=== PATIENT | male | born 1935 | race Caucasian/White ===

== ENCOUNTER 2019-10-28 10:30 | Outpatient (RCR) | payer OTHER, SELFPAY ==
--- NOTE | 2019-10-28 12:39 | PT.OIE ---
Current Diagnoses Unspecified urinary incontinence (10/28/19) Visit Care Team Role Provider Type Merlin Bowles MD Attending Provider Non-Staff Primary Care Provider Referring Provider Specialty: Family Practice Address: [address] [place] [address], [id number] Email: Physical Therapy Initial Evaluation PT-OP-A Visit Information Start: 10/22/19 09:46 Freq: Status: Active Protocol: Document 10/22/19 12:00 [facility] (Rec: 10/22/19 12:24 [facility] [id number]) Out-Patient Physical Therapy Visit Information Visit Information Visit Type Initial Evaluation Visit Start Time 12:00 Visit Stop Time 12:45 Total Visit Minutes 45 Visit Number 1 Evaluation Information Evaluation Date 10/22/19 PT-OP-B Current Condition Start: 10/22/19 09:46 Freq: Status: Active Protocol: Document 10/22/19 12:00 [facility] (Rec: 10/22/19 12:24 [facility] [id number]) Current Condition History of Current Condition Onset Date symptoms have worsened in the past 8 months Current Complaints urinary stress incontinence especially with sit-stand activities History of Current Condition 1997 history of prostatectomy he did have urinary incontinence then and for 20 years. Recently 8 months his symptoms have gotten worse. He started doing kegels again and this has helped. Activities such as sit stand cause leakage. He does have a hernia in the abdominal wall. Still does alot of heavy lifting. Wears a half of a female hygine pad. Has a daily bowel movement. Voids 4 -5 times from 10-2. Wakes up at 6:30. Has 1/4 cup of decaf coffee in the am. Drinks fluid throught the day and starts to slow down liquids as it get closer to night time. Prior Treatments and Tests post void residual has been doen 4 times and has been normal. Treatment Goals Patient/Caregiver Goals Kaushal's goals include eliminating urinary incontinence especially with sit-stand activities PT-OP-J Posture/Palpation/Skin Start: 10/22/19 09:46 Freq: Status: Active Protocol: Document 10/22/19 12:00 [facility] (Rec: 10/23/19 11:03 [facility] [email or web address]) Palpation Assessment Location suprapubic fascia Palpation Location supropubic fascia Palpation Details able to palpate the transverse abdominal musculature and the anterior pelvic floor, pt has difficulty feeling the anterior pelvic floor. Improved facilitation with isometric adductor squeeze and anterior pelvic floor PT-OP-M Strength Start: 10/22/19 09:46 Freq: Status: Active Protocol: Document 10/22/19 12:00 [facility] (Rec: 10/23/19 11:03 [facility] [email or web address]) Trunk Strength Trunk Manual Muscle Testing Testing Position Supine Flexion 3+ Fair+ Core Stabilization Decreased transverse abdominal stabilization, tendency to bulge out the abdominal wall with transitional movements such as sit-stand or rolling in bed. Pt does have a history of both abdominal and inguinal hernia PT-OP-Q Treatments Start: 10/22/19 09:46 Freq: Status: Active Protocol: Document 10/22/19 12:00 [facility] (Rec: 10/23/19 11:03 [facility] [email or web address]) Therapeutic Exercises Supine Exercises 1 Supine Exercise Name neuro re-education of the levator ani with anterior pelvic floor facilitati Side bilateral Reps/Minutes 10 reps hold x 10 seconds and repe Sitting Exercises 1 Sitting Exercise Name sit to stand with pelvic floor activation Reps/Minutes x 10 reps PT-OP-T Assessment and Plan Start: 10/22/19 09:46 Freq: Status: Active Protocol: Document 10/22/19 12:00 [facility] (Rec: 10/28/19 12:20 [facility] [email or web address]) Physical Therapy Assessment Rehab Potential Rehabilitation Potential Excellent Evaluation Complexity Number of Personal Factors/Comorbidities 0 Number of Body Systems Impaired 1-2 Clinical Presentation at Evaluation Stable Impairments Impairments Activity Tolerance,Functional Activities,Strength Goals Three Impairment pt lacks a home exercise program for pelvic floor strengthening Penitentiary Goal (LTG) Kaushal is independent with a home exercise program for pelvic floor stabilization and endurance LTG Duration 8 weeks Two Impairment decreased endurance of the pelvic floor Penitentiary Goal (LTG) Kaushal is able to sustain a pelivc floor contraction and hold x 10 seconds LTG Duration 8 weeks One Impairment urinary leakage worse with sit -stand Short Term Goal (STG) Kaushal is educated on bracing his pelvic floro prior to transfering from sit-stand STG Duration 2 weeks Food Consultant Goal (LTG) Kaushal is able to strengthen his pelvic floor to enable him to transfer from sit-stand without any urinary leakage LTG Duration 8 weeks Assessment Summary Assessment Naresh presents to physical therapy today with signs and symptoms consistent with urinary stress incontinence. He has a history of prostatectomy over 20 years ago. He reports that he had worked on his pelvic floor after his surgery and has done well with little to no leakage until approximately 8 months ago. He notes now he leaks with sit to stand activities. He can walk x 30 minutes on the treadmill and can sleep through the night without leaking. I educated Naresh today on anterior pelvic floor strengthening. He was also taught to brace with is pelivc floor prior to standing . He is able to facilitate his pelvic floor musculature but was not putting emphasis on the anterior pelvic floor. Naresh would benefit from endurance training of the anterior levator ani. He is a good candidate for PT Physical Therapy Plan Frequency and Duration Frequency of Treatment 1x/Week Duration of Treatment 8 weeks Plan of Care Start Date 10/22/19 Plan of Care End Date 12/17/19 Therapeutic Interventions Therapeutic Interventions Home Exercise Program, Neuromuscular Re-education, Patient/Caregiver Education, Self-Care/Home Management, Therapeutic Exercises Modalities Biofeedback
--- NOTE | 2019-10-28 12:39 | PT.OPPOC ---
Physical, Occupational & Speech Therapy At [facility] Current Diagnoses Unspecified urinary incontinence (10/28/19) Visit Care Team Role Provider Type Merlin Bowles MD Attending Provider Non-Staff Primary Care Provider Referring Provider Specialty: Family Practice Address: [address] [place] [address], [id number] Email: Plan Of Care PT-OP-T Assessment and Plan Start: 10/22/19 09:46 Freq: Status: Active Protocol: Document 10/22/19 12:00 [facility] (Rec: 10/28/19 12:20 [facility] [email or web address]) Physical Therapy Assessment Rehab Potential Rehabilitation Potential Excellent Evaluation Complexity Number of Personal Factors/Comorbidities 0 Number of Body Systems Impaired 1-2 Clinical Presentation at Evaluation Stable Impairments Impairments Activity Tolerance,Functional Activities,Strength Goals Three Impairment pt lacks a home exercise program for pelvic floor strengthening Shelter Goal (LTG) Kaushal is independent with a home exercise program for pelvic floor stabilization and endurance LTG Duration 8 weeks Two Impairment decreased endurance of the pelvic floor Shelter Goal (LTG) Kaushal is able to sustain a pelvic floor contraction and hold x 10 seconds LTG Duration 8 weeks One Impairment urinary leakage worse with sit -stand Short Term Goal (STG) Kaushal is educated on bracing his pelvic floor prior to transferring from sit-stand STG Duration 2 weeks Sales Representative [employer] Goal (LTG) Kaushal is able to strengthen his pelvic floor to enable him to transfer from sit-stand without any urinary leakage LTG Duration 8 weeks Assessment Summary Assessment Naresh presents to physical therapy today with signs and symptoms consistent with urinary stress incontinence. He has a history of prostatectomy over 20 years ago. He reports that he had worked on his pelvic floor after his surgery and has done well with little to no leakage until approximately 8 months ago. He notes now he leaks with sit to stand activities. He can walk x 30 minutes on the treadmill and can sleep through the night without leaking. I educated Naresh today on anterior pelvic floor strengthening. He was also taught to brace with is pelvic floor prior to standing . He is able to facilitate his pelvic floor musculature but was not putting emphasis on the anterior pelvic floor. Naresh would benefit from endurance training of the anterior levator ani. He is a good candidate for PT Physical Therapy Plan Frequency and Duration Frequency of Treatment 1x/Week Duration of Treatment 8 weeks Plan of Care Start Date 10/22/19 Plan of Care End Date 12/17/19 Therapeutic Interventions Therapeutic Interventions Home Exercise Program, Neuromuscular Re-education, Patient/Caregiver Education, Self-Care/Home Management, Therapeutic Exercises Modalities Biofeedback Plan of Care Dates Plan of Care Start Date 10/22/19 Plan of Care End Date 12/17/19 Electronically Signed by: Alycia Glez, PT 10/28/19 0077 Please Sign and Return: I have reviewed this Plan of Care and certify that the skilled therapy services above are required to meet the patient?s needs. Physician Signature Date Printed Name and Credentials Clinical Instructor Signature Printed Name and Credentials
--- NOTE | 2019-10-28 17:32 | PT.OTN ---
Current Diagnoses Unspecified urinary incontinence (10/28/19) Physical Therapy Treatment Note PT-OP-A Visit Information Start: 10/22/19 09:46 Freq: Status: Active Protocol: Document 10/28/19 17:14 [facility] (Rec: 10/28/19 17:32 [facility] [id number]) Out-Patient Physical Therapy Visit Information Visit Information Visit Type Treatment Note Visit Start Time 10:33 Visit Stop Time 11:15 Total Visit Minutes 40 Visit Number 2 Evaluation Information Evaluation Date 10/22/19 PT-OP-B Current Condition Start: 10/22/19 09:46 Freq: Status: Active Protocol: Document 10/22/19 12:00 [facility] (Rec: 10/22/19 12:24 [facility] [id number]) Current Condition History of Current Condition Onset Date symptoms have worsened in the past 8 months Current Complaints urinary stress incontinence especially with sit-stand activities History of Current Condition 1998 history of prostatectomy he did have urinary incontinence then and for 20 years. Recently 8 months his symptoms have gotten worse. He started doing kegels again and this has helped. Activities such as sit stand cause leakage. He does have a hernia in the abdominal wall. Still does alot of heavy lifting. Wears a half of a female hygine pad. Has a daily bowel movement. Voids 4 -5 times from 10-2. Wakes up at 6:30. Has 1/4 cup of decaf coffee in the am. Drinks fluid throught the day and starts to slow down liquids as it get closer to night time. Prior Treatments and Tests post void residual has been doen 4 times and has been normal. Treatment Goals Patient/Caregiver Goals Kaushal's goals include eliminating urinary incontinence especially with sit-stand activities PT-OP-C Subjective Start: 10/22/19 09:46 Freq: Status: Active Protocol: Document 10/28/19 17:14 [facility] (Rec: 10/28/19 17:32 [facility] [email or web address]) OP-PT Subjective Patient Comments Patient Comments pt reports he has been trying to work on sit to stand with pelvic floor activation. He reports the leakage occurs within a few steps after sit - stand. It is better though and he can walk for 30 minutes on the treadmill without leaking PT-OP-J Posture/Palpation/Skin Start: 10/22/19 09:46 Freq: Status: Active Protocol: Document 10/22/19 12:00 [facility] (Rec: 10/23/19 11:03 [facility] [email or web address]) Palpation Assessment Location suprapubic fascia Palpation Location supropubic fascia Palpation Details able to palpate the transverse abdominal musculature and the anterior pelvic floor, pt has difficulty feeling the anterior pelvic floor. Improved facilitation with isometric adductor squeeze and anterior pelvic floor PT-OP-M Strength Start: 10/22/19 09:46 Freq: Status: Active Protocol: Document 10/22/19 12:00 [facility] (Rec: 10/23/19 11:03 [facility] [email or web address]) Trunk Strength Trunk Manual Muscle Testing Testing Position Supine Flexion 3+ Fair+ Core Stabilization Decreased transverse abdominal stabilization, tendency to bulge out the abdominal wall with transitional movements such as sit-stand or rolling in bed. Pt does have a history of both abdominal and inguinal hernia PT-OP-Q Treatments Start: 10/22/19 09:46 Freq: Status: Active Protocol: Document 10/28/19 17:14 [facility] (Rec: 10/28/19 17:32 [facility] [email or web address]) Therapeutic Exercises Supine Exercises 2 Supine Exercise Name ball squeeze with pelvic floor contraction Reps/Minutes 2 x 10 reps 1 Supine Exercise Name neuro re-education of the levator ani with anterior pelvic floor facilitati Side bilateral Reps/Minutes 10 reps hold x 10 seconds and repe Sitting Exercises 1 Sitting Exercise Name sit to stand with pelvic floor activation Reps/Minutes x 10 reps Standing Exercises 1 Standing Exercise Name standing squats with pelvic floor activation Reps/Minutes x 10 reps Therapeutic Activity Therapeutic Activity 1 Name functional training with transfers and pelvic floor activation Comments worked on transfering from supine to sidelying and sitting with TA and pelvic floor activation to decrease the pressure both on the abdominal wall and pelvic floor. Self-Care/Home Management Treatment Education Patient Education Home Exercise Program Other Education education on bracing with the pelvic floor prior to standing PT-OP-T Assessment and Plan Start: 10/22/19 09:46 Freq: Status: Active Protocol: Document 10/28/19 17:14 [facility] (Rec: 10/28/19 17:32 [facility] [email or web address]) Physical Therapy Assessment Assessment Summary Assessment Naresh is able to facilitate the anterior portion of his pelvic floor and is doing better with endurance holds this week Physical Therapy Plan Frequency and Duration Frequency of Treatment 1x/Week Duration of Treatment 8 weeks Plan of Care Start Date 10/22/19 Plan of Care End Date 12/17/19 Therapeutic Interventions Therapeutic Interventions Home Exercise Program, Neuromuscular Re-education, Patient/Caregiver Education, Self-Care/Home Management, Therapeutic Exercises Modalities Biofeedback
--- NOTE | 2020-05-03 13:29 | PT.OPDS ---
Current Diagnoses Unspecified urinary incontinence (10/28/19) Visit Care Team Role Provider Type Merlin Bowles MD Attending Provider Non-Staff Primary Care Provider Referring Provider Specialty: Family Practice Address: [address] [place] [address], [phone] Email: Visit Number Visit Number 2 Discharge Summary PT-OP-B Current Condition Start: 10/22/19 09:46 Freq: Status: Active Protocol: Document 10/22/19 12:00 [facility] (Rec: 10/22/19 12:24 [facility] [id number]) Current Condition History of Current Condition Onset Date symptoms have worsened in the past 8 months Current Complaints urinary stress incontinence especially with sit-stand activities History of Current Condition 1997 history of prostatectomy he did have urinary incontinence then and for 20 years. Recently 8 months his symptoms have gotten worse. He started doing kegels again and this has helped. Activities such as sit stand cause leakage. He does have a hernia in the abdominal wall. Still does alot of heavy lifting. Wears a half of a female hygine pad. Has a daily bowel movement. Voids 4 -5 times from 10-2. Wakes up at 6:30. Has 1/4 cup of decaf coffee in the am. Drinks fluid throught the day and starts to slow down liquids as it get closer to night time. Prior Treatments and Tests post void residual has been doen 4 times and has been normal. Treatment Goals Patient/Caregiver Goals Kaushal's goals include eliminating urinary incontinence especially with sit-stand activities PT-OP-C Subjective Start: 10/22/19 09:46 Freq: Status: Active Protocol: Document 10/28/19 17:14 [facility] (Rec: 10/28/19 17:32 [facility] [email or web address]) OP-PT Subjective Patient Comments Patient Comments pt reports he has been trying to work on sit to stand with pelvic floor activation. He reports the leakage occurs within a few steps after sit - stand. It is better though and he can walk for 30 minutes on the treadmill without leaking PT-OP-J Posture/Palpation/Skin Start: 10/22/19 09:46 Freq: Status: Active Protocol: Document 10/22/19 12:00 [facility] (Rec: 10/23/19 11:03 [facility] [email or web address]) Palpation Assessment Location suprapubic fascia Palpation Location supropubic fascia Palpation Details able to palpate the transverse abdominal musculature and the anterior pelvic floor, pt has difficulty feeling the anterior pelvic floor. Improved facilitation with isometric adductor squeeze and anterior pelvic floor PT-OP-M Strength Start: 10/22/19 09:46 Freq: Status: Active Protocol: Document 10/22/19 12:00 [facility] (Rec: 10/23/19 11:03 [facility] [email or web address]) Trunk Strength Trunk Manual Muscle Testing Testing Position Supine Flexion 3+ Fair+ Core Stabilization Decreased transverse abdominal stabilization, tendency to bulge out the abdominal wall with transitional movements such as sit-stand or rolling in bed. Pt does have a history of both abdominal and inguinal hernia PT-OP-T Assessment and Plan Start: 10/22/19 09:46 Freq: Status: Active Protocol: Document 05/03/20 13:28 [facility] (Rec: 05/03/20 13:29 [facility] [email or web address]) Physical Therapy Assessment Assessment Summary Assessment Bill has not been seen since the Covid pandemic. He has not wished to return to PT at this time Physical Therapy Plan Discharge Physical Therapy Discharge Reasons No Longer Attending PT Discharge Comments Pt's care was stopped due to the Covid 19 pandemic. He has not wished to resume PT at this time.
== END 2020-05-04 11:12 ==
LOC: PHYS 10:30
PROVIDERS: PCP Family Medicine; Referring Provider Family Medicine; Visit Provider Family Medicine
DX: R32 Unspecified urinary incontinence (principal)
CPT/HCPCS: 97110; 97161; 97530; 97535